=== PATIENT | male | born 1985 | race American Indian/Alaskan Native ===

== ENCOUNTER 2021-07-08 09:17 | Emergency (ER) | payer SELFPAY ==
[2021-07-08 09:28] VITALS: BP 144/113
--- NOTE | 2021-07-08 10:02 | Emergency Department Report ---
ED Allergic Reaction HPI - General Chief complaint: Skin Rash Stated complaint: RASH Time Seen by Provider: 07/08/21 09:30 Source: patient Mode of arrival: Ambulatory Limitations: No Limitations - History of Present Illness Initial Comments: Chief complaint: Rash facial swelling HPI: This is a 35-year-old male without significant past medical history p resents with right facial swelling. He had a black hair dye applied to the scalp by a curran 3 days ago. He awakened with rash at hairline and frontal portion of scalp. He has swelling of the forehead and taoist region periorbital region. He denies shortness of breath. Denies trouble swallowing. Has rash in any other region. MD Complaint: facial swelling, other (Rash) -: Gradual, days(s) (3 days ago) Exposure: other (Hair dye) Symptoms: rash, facial swelling Severity: moderate, severe Treatment Prior to Arrival: none Previous Allergy History: none - Related Data Previous Rx's Medication Instructions Recorded Last Taken Type Hydrocortisone [Hydrocortisone 1 applic TP TID 10 Days #1 07/08/21 Unknown Rx 2.5% OINT] container Prednisone [predniSONE 10 mg 10 mg PO .TAPER #1 tab.ds.pk 07/08/21 Unknown Rx (6-Day Pack, 21 Tabs)] Allergies Allergy/AdvReac Type Severity Reaction Status Date / Time No Known Allergies Allergy Verified 07/08/21 09:25 ED Review of Systems ROS: Stated complaint: RASH Other details as noted in HPI Constitutional: denies: chills, fever, malaise Respiratory: denies: cough Cardiovascular: denies: chest pain Gastrointestinal: denies: abdominal pain Skin: rash, lesions ED Past Medical Hx - Past Medical History Previous Medical History?: No - Surgical History Past Surgical History?: No - Medications Home Medications: Home Medications Medication Instructions Recorded Confirmed Last Taken Type Hydrocortisone [Hydrocortisone 1 applic TP TID 10 Days #1 07/08/21 Unknown Rx 2.5% OINT] container Prednisone [predniSONE 10 mg 10 mg PO .TAPER #1 tab.ds.pk 07/08/21 Unknown Rx (6-Day Pack, 21 Tabs)] ED Physical Exam - General Limitations: No Limitations General appearance: alert, in no apparent distress - Head Head exam: Present: other (Weeping yellow crusting rash over the hairline with diffuse erythema swelling of the forehead and taoist region) - ENT ENT exam: Present: normal exam, normal orophraynx, other (No oropharyngeal swelling normal voice) - Respiratory Respiratory exam: Present: normal lung sounds bilaterally. Absent: respiratory distress, rhonchi - Skin Skin exam: Present: warm, other (No urticaria involving the extremities) ED Course Vital Signs 07/08/21 09:26 Temperature 98 F Pulse Rate 96 H Respiratory 16 Rate Blood Pressure 144/113 [Left] O2 Sat by Pulse 96 Oximetry ED Medical Decision Making - Medical Decision Making Allergic contact dermatitis due to hair dye. I recommended thorough hair washing. Prescribed topical hydrocortisone 2.5% ointment. Prednisone taper Referred to internal medicine physician. Critical care attestation.: If time is entered above; I have spent that time in minutes in the direct care of this critically ill patient, excluding procedure time. ED Disposition Clinical Impression: Allergic contact dermatitis due to dyes Disposition: 01 HOME / SELF CARE / HOMELESS Is pt being admited?: No Does the pt Need Aspirin: No Condition: Stable Instructions: Contact Dermatitis, [id number] Prescriptions: Hydrocortisone [Hydrocortisone 2.5% OINT] 1 applic TP TID 10 Days #1 container Prednisone [predniSONE 10 mg (6-Day Pack, 21 Tabs)] 10 mg PO .TAPER #1 tab.ds.pk Referrals: ALLEN FERNÁNDEZ MD [Staff Physician] - 3-5 Days
== END 2021-07-08 10:54 | disposition home or self-care (01) ==
LOC: ED 09:17
DX: L23.4 Allergic contact dermatitis due to dyes (principal); Z79.899 Other long term (current) drug therapy
CPT/HCPCS: 99282

== ENCOUNTER 2021-11-28 10:41 | Emergency (ER) | payer SELFPAY ==
[2021-11-28] MEDS ORDERED: HYDROcodone/ACETAMINOPHEN 5-325 MG TAB PO ONE (12:35)
--- NOTE | 2021-11-28 12:35 | Emergency Department Report ---
ED Lower Extremity HPI - General Chief Complaint: Extremity Problem,Nontraumatic Stated Complaint: EXTREMITIES PAIN Time Seen by Provider: 11/28/21 12:20 Source: patient Mode of arrival: Ambulatory Limitations: Language Barrier - History of Present Illness Initial Comments: Chief complaint: Leg pain for 2 weeks HPI: 36-year-old male without significant past medical history presents with right leg pain for the past 2 weeks. Pain begins at the right foot radiates to the right hip. Pain involves his entire lower leg. No recent travel. He works as a delivery driver assistant for delivery service. He denies chest pain. Denies shortness of breath. Denies trauma. -: Gradual, week(s) (2 weeks) Severity: severe Severity scale (0 -10): 10 Improves With: nothing Worsens With: nothing Context: other (No trauma) Associated Symptoms: swelling - Related Data Previous Rx's Medication Instructions Recorded Last Taken Type Hydrocortisone [Hydrocortisone 1 applic TP TID 10 Days #1 07/08/21 Unknown Rx 2.5% OINT] container Prednisone [predniSONE 10 mg 10 mg PO .TAPER #1 tab.ds.pk 07/08/21 Unknown Rx (6-Day Pack, 21 Tabs)] Cyclobenzaprine [Flexeril] 10 mg PO TID PRN #30 11/28/21 Unknown Rx Ibuprofen [Motrin 400 MG tab] 400 mg PO TID 5 Days #15 tablet 11/28/21 Unknown Rx Allergies Allergy/AdvReac Type Severity Reaction Status Date / Time No Known Allergies Allergy Verified 07/08/21 09:25 ED Review of Systems ROS: Stated complaint: EXTREMITIES PAIN Other details as noted in HPI Comment: All other systems reviewed and negative Constitutional: denies: chills, fever, malaise Respiratory: denies: cough, shortness of breath Cardiovascular: denies: chest pain Gastrointestinal: constipation. denies: abdominal pain, nausea, vomiting ED Past Medical Hx - Past Medical History Previous Medical History?: No - Surgical History Past Surgical History?: No - Family History Family history: hypertension - Social History Smoking Status: Never Smoker Substance Use Type: None - Medications Home Medications: Home Medications Medication Instructions Recorded Confirmed Last Taken Type Hydrocortisone [Hydrocortisone 1 applic TP TID 10 Days #1 07/08/21 Unknown Rx 2.5% OINT] container Prednisone [predniSONE 10 mg 10 mg PO .TAPER #1 tab.ds.pk 07/08/21 Unknown Rx (6-Day Pack, 21 Tabs)] Cyclobenzaprine [Flexeril] 10 mg PO TID PRN #30 11/28/21 Unknown Rx Ibuprofen [Motrin 400 MG tab] 400 mg PO TID 5 Days #15 tablet 11/28/21 Unknown Rx ED Physical Exam - General Limitations: No Limitations General appearance: alert, in no apparent distress - Head Head exam: Present: atraumatic, normocephalic - Eye Eye exam: Present: normal appearance - ENT ENT exam: Present: mucous membranes moist - Neck Neck exam: Present: normal inspection, full ROM - Respiratory Respiratory exam: Present: normal lung sounds bilaterally. Absent: respiratory distress, wheezes, rales, rhonchi - Cardiovascular Cardiovascular Exam: Present: regular rate, normal rhythm, normal heart sounds. Absent: systolic murmur, diastolic murmur, rubs, gallop - GI/Abdominal GI/Abdominal exam: Present: soft, normal bowel sounds. Absent: distended, tenderness, guarding, rebound - Rectal Rectal exam: Present: deferred - Extremities Exam Extremities exam: Present: normal inspection - Expanded Lower Extremity Exam Right Hip exam: Present: normal inspection, full ROM. Absent: tenderness, swelling Upper Leg exam: Present: normal inspection, full ROM. Absent: tenderness, swelling Knee exam: Present: normal inspection, full ROM. Absent: tenderness, swelling Lower Leg exam: Present: full ROM, swelling. Absent: tenderness Ankle exam: Present: normal inspection, full ROM. Absent: tenderness, swelling Foot/Toe exam: Present: full ROM, swelling. Absent: tenderness Neuro vascular tendon exam: Present: no vascular compromise (2+ DP pulse) - Neurological Exam Neurological exam: Present: alert, oriented X3 - Psychiatric Psychiatric exam: Present: normal affect, normal mood - Skin Skin exam: Present: warm, dry, intact, normal color. Absent: rash ED Course Vital Signs 11/28/21 11:57 Temperature 98.3 F Pulse Rate 98 H Respiratory 16 Rate Blood Pressure 156/83 [Left] O2 Sat by Pulse 97 Oximetry ED Lower Extremity MDM - Radiology Data Radiology results: report reviewed Patient Name: GREGG HENRIQUEZ Gender: Male Date of : 1985 Referring Provider: KIMBERLY MAYER Organization: [facility] Accession Number: [id number] Requested Date: November 28, 2021 12:32 Report Status: Final Requested Procedure: 1 Procedure Description: VL venous duplex LE RT Modality: VL Findings Reporting MD: Boom Bustamante Dictation Time: November 28, 2021 13:23 Family Service Worker: Not available [employer] Machine Operator Date: DUPLEX DOPPLER LOWER EXTREMITY VEINS, RIGHT INDICATION / CLINICAL INFORMATION: right leg pain. TECHNIQUE: Duplex doppler imaging was performed through the veins of the right lower extremity using venous compression and other maneuvers. COMPARISON: None available. FINDINGS: RIGHT COMMON FEMORAL VEIN: Negative. RIGHT FEMORAL VEIN: Negative. RIGHT POPLITEAL VEIN: Negative. RIGHT CALF VEINS: Negative. ADDITIONAL FINDINGS: None. IMPRESSION: 1. No sonographic evidence for DVT in the right lower extremity. Signer Name: Boom Bustamante MD Signed: 11/28/2021 1:23 PM Workstation Name: [id number] - Medical Decision Making 1. Right leg pain without evidence of DVT on ultrasound, suspect sciatica. Prescribed ibuprofen and cyclobenzaprine. Given referral to outpatient physician. Critical care attestation.: If time is entered above; I have spent that time in minutes in the direct care of this critically ill patient, excluding procedure time. ED Disposition Clinical Impression: Sciatica Disposition: 01 HOME / SELF CARE / HOMELESS Is pt being admited?: No Does the pt Need Aspirin: No Condition: Stable Instructions: Sciatica, [id number] Prescriptions: Cyclobenzaprine [Flexeril] 10 mg PO TID PRN #30 PRN Reason: Muscle Spasm Ibuprofen [Motrin 400 MG tab] 400 mg PO TID 5 Days #15 tablet Referrals: JESSICA CAMPOS MD [Primary Care Provider] - 3-5 Days ALLEN FERNÁNDEZ MD [Staff Physician] - 3-5 Days
--- NOTE | 2021-11-28 14:28 | Vascular Lab Report ---
DUPLEX DOPPLER LOWER EXTREMITY VEINS, RIGHT INDICATION / CLINICAL INFORMATION: right leg pain. TECHNIQUE: Duplex doppler imaging was performed through the veins of the right lower extremity using venous comp ression and other maneuvers. COMPARISON: None available. FINDINGS: RIGHT COMMON FEMORAL VEIN: Negative. RIGHT FEMORAL VEIN: Negative. RIGHT POPLITEAL VEIN: Negative. RIGHT CALF VEINS: Negative. ADDITIONAL FINDINGS: None. IMPRESSION: 1. No sonographic evidence for DVT in the right lower extremity. Signer Name: Boom Bustamante MD Signed: 11/28/2021 2:23 PM Workstation Name: [id number]
[2021-11-28 15:26] VITALS: BP 144/88
== END 2021-11-28 15:26 | disposition home or self-care (01) ==
LOC: ED 10:41
DX: M54.31 Sciatica, right side (principal)
CPT/HCPCS: 99283